=== PATIENT | female | born 1960 | race Caucasian/White ===

== ENCOUNTER 2020-05-26 13:58 | Emergency (ER) | payer OTHER ==
[~2020-05-26] VITALS: Ht 154.9 cm; Wt 79.4 kg
[2020-05-26] MEDS ORDERED: IBU600 MG (14:55)
[2020-05-26] MEDS ORDERED: PROGESTERONE200 MG (14:56)
== END 2020-05-26 20:03 | disposition home or self-care (01) ==
LOC: ER 13:58
DX: R10.2 Pelvic and perineal pain (principal); R10.32 Left lower quadrant pain; Z03.818 Encounter for observation for suspected exposure to other biological agents ruled out

== ENCOUNTER 2021-02-06 05:25 | Day surgery (SDC) | payer OTHER ==
[~2021-02-06 05:25] MED LIST: IBU600 MG; PROGESTERONE200 MG
== END 2021-02-06 18:30 | disposition home or self-care (01) ==
LOC: CIR.AMB 05:25
PROVIDERS: ATTEND Obstetrics & Gynecology
DX: N95.0 Postmenopausal bleeding (principal); Z20.822 Contact with and (suspected) exposure to COVID-19